=== PATIENT | male | born 1960 | race Caucasian/White ===

== ENCOUNTER 2017-09-30 12:23 | Emergency (ER) | payer BC ==
[~2017-09-30] VITALS: Ht 175.3 cm; Wt 84.0 kg
[2017-09-30 13:11] LABS: BASOPHILS % 0.6 % (0.0-2.0); HEMATOCRIT. 45.8 % (42.0-52.0); LYMPHOCYTES % 9.7 % (20.0-50.0); MEAN CORPUSCULAR HEMOGLOBIN 27.7 pg (28.0-32.0); MEAN CORPUSCULAR VOLUME 84.6 fL (80.0-94.0); MEAN PLATELET VOLUME 7.4 fl (7.4-10.4); MONOCYTES % 6.5 % (2.0-8.0); NEUTROPHILS % 83.2 % (40.0-76.0); PLATELET 201 x1000/uL (130-400); RED BLOOD CELL COUNT 5.42 mill/uL (4.7-6.1); RED CELL DISTRIBUTION WIDTH 14.6 % (11.6-14.6)
[2017-09-30 13:16] LABS: CHLORIDE 99 mEq/L (98-107)
[2017-09-30 13:20] LABS: ETHANOL BLOOD < 10 mg/dL
[2017-09-30] MEDS ORDERED: SODIUM CHLORIDE 0.9% 1,000 ML IV ONE (15:19)
[2017-09-30] MEDS ORDERED: LORAZEPAM 2MG/ML CPJ IV ONE (15:30)
[2017-09-30] MEDS ORDERED: CHLORDIAZEPOXIDE 25MG CAPSULE PO ONE (15:30)
[2017-09-30 16:36] VITALS: BP 170/105
== END 2017-09-30 17:02 | disposition home or self-care (01) ==
LOC: ER 13:54
DX: S50.02XA Contusion of left elbow, initial encounter (principal); F10.239 Alcohol dependence with withdrawal, unspecified; I10 Essential (primary) hypertension; E78.00 Pure hypercholesterolemia, unspecified; E11.9 Type 2 diabetes mellitus without complications; Y90.0 Blood alcohol level of less than 20 mg/100 ml; R00.0 Tachycardia, unspecified; Z88.0 Allergy status to penicillin; W01.0XXA Fall on same level from slipping, tripping and stumbling without subsequent striking against object, initial encounter; Y93.66 Activity, soccer; Y92.89 Other specified places as the place of occurrence of the external cause
CPT/HCPCS: 36415; 73080; 80053; 85025; 93005; 96361; 96374; 99285; G0482; J2060; J7030